=== PATIENT | male | born 1955 | race Caucasian/White ===

== ENCOUNTER 2016-08-25 16:11 | Emergency (ER) | payer OTHER ==
[~2016-08-25] VITALS: Ht 170.2 cm; Wt 117.9 kg
[2016-08-25 16:16] VITALS: BP 133/83
[2016-08-25] MEDS ORDERED: LISINOPRIL20 M1 PO (17:35)
[2016-08-25] MEDS ORDERED: METFORMIN HCL500 M3 PO (17:35)
[2016-08-25] MEDS ORDERED: IBUPROFEN600 M1 PO (17:36)
[2016-08-25] MEDS ORDERED: METFORMIN HCL1000 M1 PO (17:36)
[2016-08-25] MEDS ORDERED: CHANTIX1 MG (17:36)
--- NOTE | 2016-08-25 17:42 | ED UPPER/LOWER EXTREMITY COMPL ---
History of Present Illness General Chief Complaint: Upper Extremity Problem Stated Complaint: SWOLLEN/PAINFULL ELBOW (NO INJURY) Source: patient, old records Exam Limitations: no limitations Vital Signs & Intake/Output Vital Signs & Intake/Output Vital Signs Date Time Temp Pulse Resp B/P Pulse O2 O2 Flow FiO2 Ox Delivery Rate 08/25 1752 Room Air Room Air 08/25 1750 97.3 08/25 1616 97.3 80 16 133/83 98 Room Air Allergies Coded Allergies: No Known Allergies (08/25/16) Reconcile Medications Ibuprofen 600 MG TABLET 1 TAB PO TID PRN PAIN/INFLAMMATION (Reported) with food Lisinopril 20 MG TABLET 1 TAB PO DAILY BP (Reported) Metformin HCl 1,000 MG TABLET 1 TAB PO DAILY DM (Reported) Varenicline Tartrate (Chantix) (Unknown Strength) TABLET (Unknown Dose) UNKNOWN (Reported) Triage Note: PT STATES HE HAS SWOLLEN PAINFUL LEFT ELBOW. PT DOES NOT REMEMBER ANY INJURY,. PT WAS SEEN BY PCP FOR SAME TODAY AND WAS TOLD TO PUT ICE ON AREA AND TAKE MOTRIN. PT STATES SINCE HE HAS DIABETIS HE WOULD LIKE A SECOND OPINION. Triage Nurses Notes Reviewed? yes Onset: Gradual Duration: day(s): (3), constant Timing: recent history Severity: mild, moderate Severity Numbers: 5 Pain/Injury Location: Left: Elbow. Method of Injury: unknown No Modifying Factors: none Associated Symptoms: swelling HPI: 61-year-old male presents emergency room for evaluation later 3 day history gradual onset aching throbbing 5 out of 10 left elbow swelling and pain. He denies any known injury or trauma however states went to his doctor's today and was told to take anti-inflammatories which he's been doing without improvement. He denies any known trauma or injury he denies any other joint pain, no shoulder or wrist or hand injury numbness or tingling is right-hand dominant denies any redness warmth or rashes to his arm no fevers or chills pain is nonradiating (YURIY EMERSON,HANH) Past History Travel History Traveled to [place] past 21 day No Medical History Any Pertinent Medical History? see below for history Cardiovascular: hypertension, hyperlipidemia Endocrine: diabetes Surgical History Surgical History: non-contributory Psychosocial History What is your primary language Kiswahili Tobacco Use: Current Daily Use Daily Tobacco Use Amount/Type: => 5 Cigarettes daily ETOH Use: denies use Illicit Drug Use: denies illicit drug use Family History Hx Contributory? No (HANH VIZCARRA) Review of Systems Review of Systems Constitutional: Reports: see HPI. All Other Systems: Reviewed and Negative Comments Review of systems: See HPI, All other systems negative. Constitutional, no chills no fever, no malaise HEENT: No visual changes no sore throat no congestion, Cardiovascular: No chest pain , no palpitation Skin, no rashes, no change in skin Respiratory: No dyspnea no cough no sputum GI: No nausea no vomiting, no diarrhea : No dysuria Muscle skeletal: joint pain, no joint swelling, no back pain, no neck pain, Neurologic: No numbness n no headache Psych: No stress Heme/endocrine: No bruising no bleeding Immunology: No lymphadenopathy (HANH VIZCARRA) Physical Exam Physical Exam General Appearance: well developed/nourished, no apparent distress, alert, awake , comfortable Comments: Well-developed well-nourished patient in no apparent distress. HEENT: Atraumatic, extraocular motion intact Neck: Supple, FROM Back: FROM Cardiovascular: Regular rate and rhythms no murmurs rubs Respiratory: No respiratory distress. Patient speaking in full complete sentences. Breath sounds clear to auscultation bilaterally: NO W/R/R Shoulder: Atraumatic/Stable. FROM . Elbow: LOCALIZED SWELLING OVER THE LEFT OLECRANON PROCESS, NO ERYTMEA, NO WARMTH , FROM. No laxity Upper arm/Forearm: Atraumatic. Nontender. 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 Skin intact. FROM Pulses: Normal/equal radial pulses bilaterally. Brisk cap refill Lower Extremities: full range of motion Neuro: Alert and oriented x3 Skin: Warm & dry;No appreciable rash on exposed skin Psych: Mood affect normal, normal memory normal judgment. (HANH VIZCARRA) Progress Differential Diagnosis: BURSITIS, GOUT, SEPTIC ARTHRITS,FX CONTUSION, SPRAIN Plan of Care: Orders Procedure Date/time Status XRY-ELBOW 3 OR MORE VIEWS, L 08/25 1726 Active X-ray ordered patient declining anything for pain when offered I discussed with the patient at length all of their results. I discussed with him the incidental findings the old avulsion fracture which she attributes to a old softball injury I had an extensive conversation regarding need for close follow up with their primary care physician this week as well as return precautions. I answered all of their questions, they feel comfortable with the plan and follow-up care. (HANH VIZCARRA) Diagnostic Imaging: Viewed by Me: Radiology Read. Discussed w/RAD: Radiology Read. Radiology Impression: PATIENT: GERARDO NUGENT PRESENT AGE: 61 PATIENT ACCOUNT NO: [id number] : 56 LOCATION: [facility] ORDERING PHYSICIAN: HANH EMERSON SERVICE DATE: 08/25/16 EXAM TYPE: RAD - XRY-ELBOW 3 OR MORE VIEWS, L EXAMINATION: XR ELBOW, LEFT CLINICAL INFORMATION: Left elbow pain. No injury. COMPARISON: None TECHNIQUE: AP, lateral , and oblique views of the left elbow. FINDINGS: There is no visible acute fracture or dislocation. There is a small bony avulsed fragment at the tip of olecranon process probably an old injury. In addition there is moderate soft tissue swelling posterior elbow joint question olecranon bursitis. IMPRESSION: Findings strongly suggestive of olecranon bursitis with moderate soft tissue swelling. There is a small avulsed bone fragment at the tip of olecranon process , an old injury DICTATED BY: THU CHAMPION MD DATE/TIME DICTATED:08/25/161754 [employer] ATTENDANT:MORIAH DATE/TIME TRANSCRIBED:08/25/161754 CONFIDENTIAL, DO NOT COPY WITHOUT APPROPRIATE AUTHORIZATION. <Electronically signed in Other Vendor System> SIGNED BY: THU CHAMPION MD 08/25/16 1800 (HANH VIZCARRA) Departure Departure Time of Disposition: 1814 Disposition: HOME OR SELF CARE Condition: Stable Clinical Impression Primary Impression: Olecranon bursitis Referrals: KARINA ASCENCIO,KONSTANTIN Ramirez (PCP/Family) Additional Instructions: Rest ice Tylenol Motrin as needed Isidoro wrap as discussed return with any concerns Departure Forms: Customer Survey General Discharge Information (HANH VIZCARRA) PA/UTILITY TELLER Co-Sign Statement Statement: ED Attending supervision documentation- x I saw and evaluated the patient. I have also reviewed all the pertinent lab results and diagnostic results. I agree with the findings and the plan of care as documented in the PA's/UTILITY TELLER's documentation. [] I have reviewed the ED Record and agree with the PA's/UTILITY TELLER's documentation. [] Additions or exceptions (if any) to the PAs/UTILITY TELLER's note and plan are summarized below: [] (SHAYLA ASCENCIO,SUGAR)
--- NOTE | 2016-08-25 18:00 | RADIOLOGY REPORT ---
EXAMINATION: XR ELBOW, LEFT CLINICAL INFORMATION: Left elbow pain. No injury. COMPARISON: None TECHNIQUE: AP, lateral, and oblique views of the left elbow. FINDINGS: There is no visible acute fracture or dislocation. There is a small bony avulsed fragment at the tip of olecranon process probably an old injury. In addition there is moderate soft tissue swelling posterior elbow joint question olecranon bursitis. IMPRESSION: Findings strongly suggestive of olecranon bursitis with moderate soft tissue swelling. There is a small avulsed bone fragment at the tip of olecranon process, an old injury
== END 2016-08-25 18:23 ==
LOC: ERH 16:11
DX: M70.22 Olecranon bursitis, left elbow (principal)
CPT/HCPCS: 73080-LT